=== PATIENT | male | born 1950 | race Caucasian/White ===

== ENCOUNTER → 2017-07-25 | Day surgery (SDC) | payer OTHER ==
--- NOTE | 2017-07-23 13:51 | Diagnostic Imaging Report ---
PROCEDURE: Frontal and lateral views of the chest. COMPARISON: None. INDICATIONS: PRE OP LEFT SHOULDER FINDINGS: Lines/tubes: None. Lungs: The lungs are well inflated and clear. There is no evidence of pneumonia or pulmonary edema. Pleura: There is no pleural effusion or pneumothorax. Heart and mediastinum: The heart and the mediastinum are normal. A punctate metallic density projects over the upper midline chest on frontal view, not seen on lateral view, suggesting this is external to the patient. Bones: No acute bony abnormality. Mild degenerative changes in of the spine. IMPRESSION: No acute cardiopulmonary disease. Dictated by: Parth Arango M.D. on 07/23/2017 at 13:52 Electronically approved by: Parth Arango M.D. on 07/23/2017 at 13:52
[2017-07-23 13:52] LABS: BASOPHILS % 0.3 % (0.0-1.0); EOSINOPHILS # (AUTO) 0.1 (0.0-0.4); EOSINOPHILS % 1.5 % (0.0-6.0); HEMATOCRIT 41.7 % (38.2-49.6); HEMOGLOBIN 13.6 g/dL (14.0-18.0); LYMPHOCYTES % 33.5 % (18.0-39.1); MEAN CORPUSCULAR HEMOGLOBIN 31.1 pg (28-32); MEAN CORPUSCULAR HGB CONC 32.6 g/dL (31-35); MEAN CORPUSCULAR VOLUME 95.2 fL (81-99); MONOCYTES # (AUTO) 0.9 (0.2-0.8); MONOCYTES % 10.3 % (4.4-11.3); NEUTROPHILS # (AUTO) 4.8 (2.1-6.9); NEUTROPHILS % 53.8 % (38.7-80.0); PLATELET COUNT 201 x10e3/uL (140-360); RED BLOOD COUNT 4.38 x10e6/uL (4.3-5.7); RED CELL DISTRIBUTION WIDTH 13.2 % (11.7-14.4)
[~2017-07-25] MED LIST: ACETAMINOPHEN 1000 MG/100 ML IV ONE; CEFAZOLIN SOD 2 GM/D5W 50ML 50 ML IV ONE; DEXAMETHASONE SOD PHOS INJ 4 MG/ML VIAL ONE; FENTANYL CITRATE/PF 100MCG/2 ML INJ ONE; KETOROLAC TROMETHAMINE 30 MG/ML VIAL ONE; LIDOCAINE 2%/ EPINEPHRINE 20ML MDV ONE; LIDOCAINE HCL 2% LOCAL INJ 5 ML SDV VIAL INJ ONE; MIDAZOLAM HCL 2 MG/2 ML VIAL ONE; ONDANSETRON HCL INJ 2 MG/ML VIAL ONE; PHENYLEPHRINE HCL 1% 10 MG/ML VIAL ONE; PROPOFOL IV EMULSION 10 MG/ML 20 ML VIAL ONE; ROCURONIUM BROMIDE 10 MG/ML 5ML VIAL ONE; ROPIVACAINE 0.5% 5 MG/ML 30 ML SDV ONE; SEVOFLURANE INHAL SOLN 250 ML PEN BTL ONE
--- OUTSIDE RECORDS SUMMARY | 2017-07-25 05:36 | XMS REPORT ---
Author Author [facility] Address Unknown Phone Unavailable Care Team Providers Care Cryogenics Repairer Name Role Phone SANDOVAL MATA Unavailable Unavailable Problems This patient has no known problems. Allergies, Adverse Reactions, Alerts This patient has no known allergies or adverse reactions. Medications This patient has no known medications. Results Test Description Test Time Test Comments Text Results Atomic Results Result Comments CHEST 2 VIEWS [place] [address] Patient Name: ISIDRO PATEL MR #: [id number] : 1950 Age/Sex: 67/M Req #: [id number] Adm Physician: Ordered by: MAJOR YANEZ MD Report #: [id number] Location: OR Room/Bed: Procedure: [id number] DX/ CHEST 2 VIEWS Exam Date: 07/23/17 Exam Time: 1335 REPORT STATUS: Signed PROCEDURE: Frontal and lateral views of the chest. COMPARISON: None. INDICATIONS: PRE OP LEFT SHOULDER FINDINGS: Lines/tubes: None. Lungs: The lungs are well inflated and clear. There is no evidence of pneumonia or pulmonary edema. Pleura : There is no pleural effusion or pneumothorax. Heart and mediastinum: The heart and the mediastinum are normal. A punctate metallic density projects over the upper midline chest on frontal view, not seen on lateral view, suggesting this is external to the patient. Bones: No acute bony abnormality. Mild degenerative changes in of the spine. IMPRESSION : No acute cardiopulmonary disease. Dictated by: Parth Tabor M.D. on 07/23/2017 at 13:52 Electronically approved by: Parth Tabor M.D. on 07/23/2017 at 13:52 Dictated By: PARTH TABOR MD 1352 Transcribed By: RITCHIE on 07/23/17 1352 COPY TO: MAJOR YANEZ MD
--- NOTE | 2017-07-26 00:16 | Operative Report ---
DATE OF PROCEDURE: July 25, 2017 PREOPERATIVE DIAGNOSIS: Left shoulder rotator cuff tear. POSTOPERATIVE DIAGNOSES: 1. Massive retracted unfixable left rotator cuff tear. 2. Left shoulder synovitis. 3. 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 OPERATIONS/PROCEDURES PERFORMED: Patient underwent a: 1. Left shoulder examination under anesthesia. 2. Left shoulder arthroscopy. 3. Left shoulder arthroscopic debridement of synovitis. 4. Left shoulder arthroscopic chondroplasty of the humeral head and glenoid. 5. Left shoulder arthroscopic subacromial decompression and acromioplasty. SHIP RIGGER APPRENTICE: None. ANESTHESIA: General endotracheal intubation anesthesia as well as a regional block. BLOOD LOSS: Minimal. BRIEF DESCRIPTION OF PATIENT'S OPERATIVE PROCEDURE: Mr. Vasquez was taken to the operating room and placed in the supine position on the operating room table. Following induction of general anesthesia as well as endotracheal intubation, the patient's left upper extremity was examined under anesthesia. He was found to have full passive range of motion of the shoulder joint. There was no evidence of instability. The patient's upper extremity was prepped and draped in standard surgical fashion. Standard posterolateral and anterior portals were created without difficulty. The scope was placed within the shoulder joint atraumatically, and examination of the glenohumeral articulation demonstrated chondromalacia of articulating surfaces. The long head of the biceps tendon was found to not be contained within the shoulder. There were no loose bodies in the shoulder joint. The patient had a massive retracted rotator cuff tear. A shaver was placed in the shoulder joint and diffuse glenohumeral synovitis was debrided arthroscopically. Chondroplasty of the humeral head and glenoid were also performed at this time. The scope was then placed in the subacromial space and a lateral portal was created through outside-in technique. Significant bursal inflammation was identified in the subacromial space. A bursectomy was performed. A very downward sloping lateral acromion was identified. An acromioplasty was performed at this time. The coracoacromial ligament was not resected. The remaining attachment of the teres minor was identified. All soft tissues overlying the teres minor were resected and the dissection and clearance of subcutaneous tissues continued from posterior to anterior identifying the remaining rotator cuff tissue. The rotator cuff tissue was found to be retracted to the level of the glenoid. An anterolateral portal was created through an outside-in technique. A Storden elevator was then used to free the rotator cuff tissue both along the bursal surface as well as along the glenoid surface. A grasper was then used to advance the tissue, and the rotator cuff tissue was found to advance only mildly. The tissue could not be advanced despite multiple attempts of mobilizing the tissue even to the margin of the humeral head cartilaginous surface. The shaver was used to complete the acromioplasty. The shoulder was deflated of its sterile normal saline. All wounds were closed in a single-layer fashion. The wounds were dressed sterilely and the patient was provided a sling, awakened, and taken to the postanesthesia care unit in stable condition. Job#: [id number]
== END | disposition home or self-care (01) ==
LOC: OR 05:33
PROVIDERS: ATTEND Specialist
DX: S46.092A Other injury of muscle(s) and tendon(s) of the rotator cuff of left shoulder, initial encounter (principal); M65.812 Other synovitis and tenosynovitis, left shoulder; M94.212 Chondromalacia, left shoulder; X58.XXXA Exposure to other specified factors, initial encounter; Z01.810 Encounter for preprocedural cardiovascular examination; Z01.812 Encounter for preprocedural laboratory examination; Z01.818 Encounter for other preprocedural examination; Z68.34 Body mass index [BMI] 34.0-34.9, adult; Z87.01 Personal history of pneumonia (recurrent)
CPT/HCPCS: 29822; 29826; 36415; 71046; 85025; 93005; J1100; J1885; J2001 ×2; J2250; J2370; J2405; J2795